=== PATIENT | female | born 1955 | race Caucasian/White ===

== ENCOUNTER → 2019-03-14 | Outpatient (CLI) | payer MEDICARE, OTHER ==
[~2019-03-14] MED LIST: ALBU90OI INH; PRED20 PO; SULTRIDS PO
== END | disposition home or self-care (01) ==
LOC: LAB SHORT 14:31 → PLD 14:31
DX: C44.311 Basal cell carcinoma of skin of nose (principal)
CPT/HCPCS: 88305

== ENCOUNTER 2019-12-19 08:14 | Day surgery (SDC) | payer MEDICARE, OTHER ==
[~2019-12-19] VITALS: Ht 160 cm; Wt 68.6 kg
[~2019-12-19 08:14] MED LIST changes: +ATOR20 PO; +B-121000 MC3 PO; +HYDROCHLOROTH12.5 MG PO; +MULTIVITAMINS1 EAC3 PO; +Vitamin D2000 UNIT PO
== END 2019-12-19 10:39 | disposition home or self-care (01) ==
LOC: ORSCSDS 08:14
PROVIDERS: Surgery
PROC: 0DB68ZX Excision of Stomach, Via Natural or Artificial Opening Endoscopic, Diagnostic (ICD-10-PCS; principal; 2019-12-19 09:45)
PROC: 0DB48ZX Excision of Esophagogastric Junction, Via Natural or Artificial Opening Endoscopic, Diagnostic (ICD-10-PCS; principal; 2019-12-19 09:45)
DX: K44.9 Diaphragmatic hernia without obstruction or gangrene (principal); I10 Essential (primary) hypertension; K21.9 Gastro-esophageal reflux disease without esophagitis; R73.03 Prediabetes; F41.9 Anxiety disorder, unspecified; F17.210 Nicotine dependence, cigarettes, uncomplicated; Z79.899 Other long term (current) drug therapy
CPT/HCPCS: 88305; 88342; J2250; J2704; J7120

== ENCOUNTER 2020-01-01 06:07 | Day surgery (SDC) | payer MEDICARE, OTHER ==
[~2020-01-01] VITALS: Ht 160 cm; Wt 70.9 kg
[~2020-01-01 06:07] MED LIST changes: +PANT40 PO
--- NOTE | 2020-01-01 07:02 | NUR ---
Ambulatory in Day Surgery History, Chart, Medications and Allergies reviewed before start of procedure.Lungs clear T/O to Auscultation. Patient confirms NPO status and agrees with scheduled surgery. PATIENT HAS GIVEN GLASSES TO
--- NOTE | 2020-01-01 12:47 | NUR ---
PT DROWSY UPON ARRIVAL FROM PACU. AWAKENS EASILY WITH VERBAL STIMULI, BUT FALLS BACK TO SLEEP QUICKLY AFTERWARDS. ON 2L VIA NC SATTING 94%. ATTEMPTED ROOM AIR AND PT DROPS TO 88%. ENCOURAGING DEEP BREATHING AND COUGHING AND EDUCATED PT ON INCENTIVE SPIROMETRY. PT ATTEMPTED I/S DEMONSTRATION, BUT WAS TOO DROWSY TO FOLLOW DIRECTIONS AT THIS TIME. WILL CONT TO ENCOURAGE PULMONARY TOILETING. EDUCATED PT SPOUSE TO ALSO ENCOURAGE DEEP BREATHING AND COUGHING. POST OP VS IN PROGRESS.
--- NOTE | 2020-01-01 13:23 | NUR ---
PT ARRIVED FROM PACU @ 1220 VIA STRETCHER, DROWSY BUT ROUSABLE, ASSUMED CARE AT THIS TIME
--- NOTE | 2020-01-01 16:42 | NUR ---
SHIFT SUMMARY LAP KENNY FUNDPLICATION POD0, PT TIRED WHEN ARRIVING FROM PACU, DROWSY BUT WAKES EASY, VSS, WEENED DOWN TO 1L 02 W/ O2 SAT @ 96, INITIALLY REPORTED MILD CHEST PRESSURE BUT FELT A LITTLE BETTER W/ SOME DEEEP BREATHING WHICH ALSO IMPROVED O2 SAT. NO POST OP VOID YET, WILL TRY AND GET OUT OF BED BEFORE END OF SHIFT TO STAND AT BEDSIDE. NO N/V, PT NPO. CALL LIGHT IN REACH, WILL CONTINUE TO MONITOR AND REPORT TO ONCOMING NOC RN.
--- NOTE | 2020-01-02 04:36 | NUR ---
SHIFT SUMMARY POD#1. AAOX4. PT REPORTING MINIMAL DISCOMFORT T/O SHIFT. NO NAUSEA/EMESIS. ABD INCISIONS WITH WOUND GLUE C/D/I. ABD SOFT. HYPOACTIVE BTx4. PT REPORTING SMALL AMOUNT FLATUS THIS SHIFT. NO BM POST OP. UP TO RESTROOM SBA. IVF PER ORDERS. PT RESTING WELL THIS AM WITH CALL LIGHT IN REACH.
[2020-01-02] MEDS ORDERED: ONDA4ODT MM (13:59)
[2020-01-02] MEDS ORDERED: METO10 PO (14:00)
[2020-01-02] MEDS ORDERED: Norco 5-325 Ta1 EACH PO (14:04)
--- NOTE | 2020-01-02 14:34 | NUR ---
DISCHARGE SUMMARY PT A&OX4, VSS, LEFT FLOOR VIA WC WITH VOLUNTEER TO GO HOME WITH , WITH ALL PERSONAL POSSESSIONS INCLUDING DC PACKET, 3 SCRIPTS (KRISTIN, MISSAEL, KATHRYN). DC INSTRUCTIONS PROVIDED. PT REP UNDERSTANDING THOSE INSTRUCTIONS INCLUDING OK TO SHOWER, NO LIFTING, SPLINTING ABD, WHEN TO CALL THE DR, FULL LIQUID DIET. IV DC'D.
== END 2020-01-02 14:39 | disposition home or self-care (01) ==
LOC: ORSCMMR 06:07 → EDSTATUS 07:30 → PRE IP 07:30 → SURS 12:18 → ORSCMMR 01-02 14:39 → SURS 01-02 14:39
PROVIDERS: Surgery
PROC: 0DV44ZZ Restriction of Esophagogastric Junction, Percutaneous Endoscopic Approach (ICD-10-PCS; principal; 2020-01-01 07:30)
PROC: 0BQT4ZZ Repair Diaphragm, Percutaneous Endoscopic Approach (ICD-10-PCS; principal; 2020-01-01 07:30)
DX: K44.9 Diaphragmatic hernia without obstruction or gangrene (principal); K43.9 Ventral hernia without obstruction or gangrene; R32 Unspecified urinary incontinence; F41.9 Anxiety disorder, unspecified; K21.9 Gastro-esophageal reflux disease without esophagitis; G43.909 Migraine, unspecified, not intractable, without status migrainosus; Z79.899 Other long term (current) drug therapy
CPT/HCPCS: J0690; J1100; J1650; J2250; J2370; J2405; J2704; J2765; J3010; J7120

== ENCOUNTER 2023-02-20 10:58 | Emergency (ER) | payer MEDICARE, OTHER ==
[~2023-02-20] VITALS: Ht 160 cm; Wt 65.8 kg
[~2023-02-20 10:58] MED LIST changes: +METO10 PO; +Norco 5-325 Ta1 EACH PO; +ONDA4ODT MM
[2023-02-20 11:17] VITALS: BP 136/66
== END 2023-02-20 12:00 | disposition home or self-care (01) ==
LOC: ER 10:58
DX: Z13.89 Encounter for screening for other disorder (principal); Z79.899 Other long term (current) drug therapy; Z87.891 Personal history of nicotine dependence
CPT/HCPCS: 99281

== ENCOUNTER 2023-02-28 09:03 | Emergency (ER) | payer MEDICARE, OTHER ==
[~2023-02-28] VITALS: Ht 160 cm; Wt 68.0 kg
[2023-02-28 09:25] VITALS: BP 185/105
[2023-02-28] MEDS ORDERED: Diflucan100 MG PO (09:48)
[2023-02-28] MEDS ORDERED: CLIN150 PO (09:48)
== END 2023-02-28 10:00 | disposition home or self-care (01) ==
LOC: ER 09:03
DX: K11.20 Sialoadenitis, unspecified (principal); Z79.899 Other long term (current) drug therapy; Z87.891 Personal history of nicotine dependence
CPT/HCPCS: 99282; A9270

== ENCOUNTER 2023-04-10 11:09 | Day surgery (SDC) | payer MEDICARE, OTHER ==
[~2023-04-10] VITALS: Ht 160 cm; Wt 71.3 kg
[~2023-04-10 11:09] MED LIST changes: +CLIN150 PO; +Diflucan100 MG PO; +EPINEPhrine HCl 1 MG/ML 1ML Amp ONE; +Ropivacaine 0.5% HCl/Pf 5 MG/ML 20ML VIAL ONE
[2023-04-10] MEDS ORDERED: NS 50 ML IV ONE (11:31)
[2023-04-10] MEDS ORDERED: CeFAZolin Sodium 2,000 MG VIAL ONE (11:31)
[2023-04-10] MEDS ORDERED: Lactated Ringer's 1,000 ML IV ONE ×4 (11:31→15:57)
--- NOTE | 2023-04-10 11:34 | NUR ---
04/10/23 1134 Danisha Vasques PT AMBULATORY WITH BOOT ON LEFT FOOT.
[2023-04-10] MEDS ORDERED: B-12500 MC2 (11:41)
[2023-04-10] MEDS ORDERED: ACET500 PO (11:41)
[2023-04-10] MEDS ORDERED: VITAMIN D31000 UNI1 PO (11:41)
[2023-04-10] MEDS ORDERED: NIAC500 (11:42)
[2023-04-10] MEDS ORDERED: Midazolam HCl 1MG / ML 2ML Vial ONE (12:09)
[2023-04-10] MEDS ORDERED: propofoL 20 ML IV ONE (12:09)
[2023-04-10] MEDS ORDERED: FentaNYL Citrate 50 MCG/ML 2 ML Injection ONE ×4 (12:32→15:32)
[2023-04-10] MEDS ORDERED: Ropivacaine 0.5% HCl/Pf 5 MG/ML 20ML VIAL INFIL ONE (12:37)
[2023-04-10] MEDS ORDERED: HYDROmorphone HCl/Pf 1MG SYR ONE (12:38)
--- NOTE | 2023-04-10 12:49 | NUR ---
04/10/23 1248 Gardenia Gordillo HEAD ON PILLOW, ARMS SECURED ON PADDED ARM BOARDS, RIGHT HIP BUMP, SEAT BELT.
[2023-04-10] MEDS ORDERED: Ondansetron HCl 2 MG / ML 2ML Vial ONE ×2 (13:08→15:50)
[2023-04-10] MEDS ORDERED: Dexamethasone Sod Phos 10 MG/ML 1ML VIAL ONE (13:13)
--- NOTE | 2023-04-10 14:14 | NUR ---
04/10/23 1414 Lorraine Rivas PT PLACED ON 5L OF SUPPLEMENTAL O2.
[2023-04-10] MEDS ORDERED: HYDROcodone 5-APAP 325 TAB ONE (14:53)
[2023-04-10 15:45] VITALS: BP 140/64
== END 2023-04-10 16:10 | disposition home or self-care (01) ==
LOC: ORSCSDS 11:09
PROVIDERS: Podiatrist Foot & Ankle Surgery
PROC: 0LXW0ZZ Transfer Left Foot Tendon, Open Approach (ICD-10-PCS; principal; 2023-04-10 12:30)
PROC: 0QBM0ZZ Excision of Left Tarsal, Open Approach (ICD-10-PCS; principal; 2023-04-10 12:30)
DX: M76.829 Posterior tibial tendinitis, unspecified leg (principal); M21.42 Flat foot [pes planus] (acquired), left foot; Z87.891 Personal history of nicotine dependence
CPT/HCPCS: A9270; C1713; C1769; J0171; J0690; J1100; J1170; J2250; J2405; J2704; J2795; J3010; J7120

== ENCOUNTER 2023-11-19 17:25 | Emergency (ER) | payer MEDICARE, OTHER ==
[~2023-11-19] VITALS: Ht 160 cm; Wt 72.6 kg
[~2023-11-19 17:25] MED LIST changes: +ACET500 PO; +B-12500 MC2; -EPINEPhrine HCl 1 MG/ML 1ML Amp ONE; +NIAC500; -Ropivacaine 0.5% HCl/Pf 5 MG/ML 20ML VIAL ONE; +VITAMIN D31000 UNI1 PO
[2023-11-19 17:29] VITALS: BP 162/100
[2023-11-19] MEDS ORDERED: OxyCODONE 5 mg/Acetamin 325 mg TABLET PO ONE (19:10)
== END 2023-11-19 19:30 | disposition home or self-care (01) ==
LOC: ER 17:25
DX: S00.91XA Abrasion of unspecified part of head, initial encounter (principal); I10 Essential (primary) hypertension; M17.11 Unilateral primary osteoarthritis, right knee; W08.XXXA Fall from other furniture, initial encounter; Z87.891 Personal history of nicotine dependence; Z79.899 Other long term (current) drug therapy
CPT/HCPCS: 29505; 70450; 73562-RT; 99284-25; A9270